=== PATIENT | male | born 1995 | race Asian ===

== ENCOUNTER 2024-10-02 06:59 | Outpatient (REF) | payer OTHER, SELFPAY ==
--- NOTE | ~2024-10-02 | US_ITS ---
CLINICAL HISTORY: RUQ EPIGASTRIC PAIN US abdomen complete Comparison: None Findings: The visualized pancreas is normal. The aorta and inferior vena cava are normal caliber. The liver is normal in size and increased in echotexture. There is no intrahepatic bile duct dilatation. The common duct is 3 mm in diameter. The gallbladder is normal. There is no sonographic Perrin sign. The main portal vein is antegrade. The right kidney is 11.3 cm in length. The left kidney is 12.2 cm in length. The spleen is normal. No ascites. IMPRESSION: No acute findings. Mild hepatic steatosis. This document has been electronically signed by: Hunter Santos MD on 10/03/2024 10:13:35
== END 2024-10-02 07:00 | disposition home or self-care (01) ==
LOC: HO.UMASIMG 06:59
PROVIDERS: Visit Provider Internal Medicine
DX: K29.70 Gastritis, unspecified, without bleeding (principal)
CPT/HCPCS: 76700

== ENCOUNTER → 2024-10-02 09:00 | Outpatient (BNV) | payer OTHER, SELFPAY | PROVIDERS: Visit Provider Radiology Vascular & Interventional Radiology | DX: R10.11 Right upper quadrant pain (principal); R10.13 Epigastric pain | CPT/HCPCS: 76700 ==

== ENCOUNTER 2024-10-22 10:34 | Inpatient (IN) | payer OTHER, SELFPAY ==
--- NOTE | ~2024-10-22 | CT_ITS ---
EXAMINATION: CT ABDOMEN AND PELVIS WITH CONTRAST CLINICAL INFORMATION: Elevated lipase, abdominal pain. COMPARISON: None available. TECHNIQUE: Multidetector volumetric images were obtained from the superior aspect of the liver through the pubic symphysis following administration 85 mL of Omnipaque 350 intravenous contrast. Sagittal and coronal reformatted images were obtained on the technologist's workstation. Oral contrast: No This CT examination was performed using dose optimization techniques as appropriate, variously including the following: *Automated exposure control *Adjustment of mA and/or kV according to patient size (this includes techniques or standardized protocols for targeted exams where dose is matched to indication/reason for exam; i.e. extremities or head) *Use of iterative reconstruction technique FINDINGS: LUNG BASES: The visualized lung bases are unremarkable. LIVER, GALLBLADDER, AND BILIARY TREE: The liver is normal in size, shape, and attenuation. No focal hepatic lesion or biliary ductal dilatation is present. The gallbladder is decompressed. No inflammation. PANCREAS: Mild swelling and peripancreatic edema of the body, head, and uncinate process. Findings consistent with acute edematous pancreatitis. No pancreatic necrosis. No organized fluid collection. SPLEEN: Unremarkable. ADRENAL GLANDS: Unremarkable. KIDNEYS AND URETERS: The kidneys are normal in size, shape, and attenuation. No hydronephrosis, hydroureter, or calculi seen. No perinephric stranding. BLADDER: Unremarkable. GASTROINTESTINAL TRACT: The small and large bowel are unremarkable. The appendix is unremarkable. ABDOMINAL WALL: No significant hernia is appreciated. LYMPH NODES: Normal. VASCULAR: Unremarkable. PELVIC VISCERA: The prostate and seminal vesicles are unremarkable. OSSEOUS STRUCTURES: No suspicious lytic or blastic bone lesions. CT/CT abdomen pelvis w IV con IMPRESSION: 1. Acute edematous pancreatitis of the body, head, and uncinate process of the pancreas. No evidence of pancreatic necrosis, mass, or ductal dilatation. No organized fluid collection. Electronically signed by: Dale Ely MD 10/22/2024 04:25 PM EDT
--- NOTE | ~2024-10-22 | MR_ITS ---
CLINICAL HISTORY: pancreatitis idiopathic; pancreas protocol I: MR abdomen attention pancreas with multiphase contrast imaging. II: MR Cholangiopancreatography with and without contrast: Comparison: 10/22/2024 CT. Ultrasound 10/02/2024 Findings: LIVER: No liver signal loss on IP/OOP (in phase/out of phase). No fatty infiltration. Portal vein is unremarkable. The vena cava and hepatic veins are patent The right lobe of the liver measures 15.7 cm in length BILIARY: The gallbladder size is normal. No pericholecystic inflammatory changes. There is no wall thickening. No intrahepatic biliary dilatation. The extrahepatic common bile duct diameter is 3.8 mm. No biliary duct calculus. PANCREAS: The pancreas is normal in size. No masses. The pancreatic duct in the head of the pancreas measures 2.5 mm in diameter and gradually tapers into the tail. . PERITONEUM/RETROPERITONEUM: Regional bowel and retroperitoneal structures are unremarkable. Adrenal glands are normal. Kidneys are normal in size. Kidney cortex is normal. No hydronephrosis and no signs of ureteral obstruction in the proximal ureters. Bone marrow cellularity is normal. No free intraperitoneal fluid. Bowel caliber is normal. No bowel wall thickening or inflammatory changes. No abdominal wall hernias. No adenopathy. No vascular abnormalities. The celiac and superior mesenteric arteries are unremarkable. Proximal small bowel branches are perfused. Inferior mesenteric artery is perfused. Impression: Normal biliary and pancreatic ducts. No pancreas masses. Mild peripancreatic head increased inflammatory fat density suspicious for segmental pancreatitis (groove pancreatitis). This document has been electronically signed by: Babatunde Orourke MD on 10/22/2024 21:13:34
[2024-10-22 10:46] VITALS: BP 143/88; PULSE 75; RESP 16; TEMP 36.2; O2SAT 100; BMI 25.2
--- NOTE | 2024-10-22 10:47 | ED.ABDPAIN ---
HPI - Abdominal Pain General Chief Complaint: Abdominal Pain Stated Complaint: A Month of Upper Abd Pain- Inflammation Time Seen by Provider: 10/22/24 13:17 Source: patient Mode of arrival: ambulatory Limitations: no limitations History of Present Illness ED Provider: Tanja Paz PA-C HPI narrative: This is a 29-year-old male who presents emergency department with concerns for ongoing abdominal pain for the last month. 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 Patient states that he had elevated lipase levels in the 400s. Patient initially reported to the [facility] on September 25 where he had labs performed which revealed a lipase level of 433, at that time he was told to discontinue his hypertensive medication which was nebivolol/HCTZ as this at times can be a cause of pancreatitis per his provider. Patient then followed up at the [facility] on October 15, 2024 where they reviewed his overall workup, repeat lipase was 396 than 522 on 10/02/2024. An ultrasound was performed revealing no gallstones or acute findings. There is mild hepatic steatosis noted. 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 Patient states that his pain that he is experiencing is intermittent, reports it was very severe this morning. He states that he is unable to eat normally as he is fearful of the pain he experiences. He denies any fevers, chills, shortness for breath, nausea, vomiting or diarrhea. He does report fatty like stool, denies any bloody or black stool. Denies history of pancreatitis in the past. He states that he does not drink alcohol. He denies illicit drug use. He does report that he smokes cigarettes very sparingly. He does report 10kg weight loss over the last month as he has not been eating as he normally does. No other complaints or concerns at this time. MD elicited complaint: abdominal pain Related Data Home Medications ?Medication ?Instructions ?Recorded ?Confirmed nebivolol 5 mg tablet 5 mg PO DAILY 10/22/24 10/22/24 Allergies Allergy/AdvReac Type Severity Reaction Status Date / Time No Known Allergies Allergy Verified 10/22/24 10:46 Review of Systems Review of Systems Yes all other systems are reviewed and are negative Constitutional: Reports as per HPI COUNTS INCLUDE 234 BEDS AT THE [facility] Past Medical History Medical History Hypertension Social History Social History Household Members: Friend(s) Housing: Apartment Do you presently have visiting nurse or other home services: No Patient Tobacco Use Status: Never used Tobacco service: No Physical Exam ED Vital Signs: Vital Signs - 24 hr 10/22/24 10:46 10/22/24 14:51 10/22/24 16:00 Temperature 97.1 F 96.9 F 97.3 F Pulse Rate 75 62 70 Respiratory Rate 16 18 16 Blood Pressure 143/88 H 133/83 128/77 Pulse Oximetry 100 100 96 Oxygen Delivery Method Room Air Room Air Room Air BMI result Body Mass Index 25.2 Const General: cooperative, comfortable and no acute distress Orientation/consciousness: patient oriented x3 Limitations: no limitations HENMT Head: Yes normal to inspection, Yes normocephalic and Yes atraumatic Ears: hearing grossly normal bilaterally General nose exam: Normal external nose present Face and sinus: Yes normal facial exam Mouth: Normal oral and palatal mucosa present, oropharynx normal and moist mucous membranes Throat: Yes posterior oropharynx normal Eyes General: appearance normal, both eyes and all related structures Eyelids: Yes eyelids normal Conjunctivae: conjunctivae normal Sclerae: sclerae normal Pupils: Equal, round and reactive pupils present EOM: EOMs intact bilaterally Neck Neck: Yes normal visual inspection, Yes full ROM and Yes no lymphadenopathy Lymphatic: no lymphadenopathy noted Chest Chest palpation & inspection: normal inspection of the chest Resp Effort & Inspection: normal respiratory effort and able to speak in complete sentences Auscultation: clear to auscultation bilaterally, no crackles, no rales, no rhonchi and no wheezes Cardio Rate: regular rate Rhythm: regular rhythm Heart sounds: S1 normal heart sound present and S2 normal heart sound present GI Other: Abdomen is soft, nontender, nondistended Inspection: Yes normal to inspection Skin General skin exam: no rashes or lesions noted Trauma: no lacerations or abrasions Wounds: no wounds Neuro General: patient oriented x3 and moves all extremities Cranial nerves: Yes Equal, round and reactive pupils present Extrem General: Yes normal to inspection Right upper extremity: normal to inspection Left upper extremity: normal to inspection Right lower extremity: normal to inspection Left lower extremity: normal to inspection Course Course Course Narrative: 29 yo male with PMH of HTN he has been seen at [facility] for elevated lipase has been dealing with upper abdominal pain just had normal US on 10/03. He was scheduled for MRI today but got lost and couldn't find the building. Dr. Miranda ordered the study. I confirmed there are no MRI orders for him. I see no visit notes from Dr. Miranda and his appointment with Dr. Miranda isn't until January. He states someone called him and told him he had an MRI for him. All of his pain started 09/25 no prior surgeries. He does not drink ETOH - his lipase was 400 to 500. Normal triglycerides. He was told to discontinue his HCTZ. At this time I am going to obtain labs, triglycerides and CT scan - he has no known risk factors for pancreatitis this is a RAPID medical screening exam the rest of the history and physical exam is to be done by the main provider. JOSLYN 10/22/24 1052am. Medical Decision Making Medical Decision Making [facility] Narrative: This is a 29-year-old male, with a recent diagnosis of pancreatitis of unknown origin, who presents emergency department with concerns for ongoing abdominal pain and abnormal lipase levels outpatient for the last month. Patient has been followed by [facility] where he has been followed in regards to these abnormally test. He did have an ultrasound on October 03, 2024 which revealed mild hepatic steatosis, otherwise normal findings. Patient that he had an abdominal MRI this morning however they did not have the ordered therefore he reported to the emergency room. On arrival, patient mildly hypertensive at 143/88, all other vital signs within normal limits. He is speaking in full sentences under no acute distress. Labs were obtained prior to my evaluation, he has no leukocytosis, normocytic anemia with an H&H of 13 0.9/41.8, chemistry revealing no evidence of J LUIS, slight hyperglycemia at 118, however nonfasting, and a lipase elevated at 285. He reports no alcohol use or illicit drug use. He also reports 10kg weight loss in the last month. Differential diagnoses include acute pancreatitis, pancreatic mass, malignancy, electrolyte derangement. Will obtain CT abdomen and pelvis for further evaluation. We will also hydrate with IV fluids. Course: CT abdomen and pelvis has returned, revealing acute edematous pancreatitis of the body, head, and uncinate process of the pancreas. No evidence of pancreatic necrosis, mass, or ductal dilatation, no organized fluid collection. I discussed this with hospitalist, transfer of care initiated. Differential Diagnosis Differential Diagnoses: The differential diagnosis associated with the presentation includes See above Admission/Observation Consideration of admission/observation: Escalation of care including admission/observation considered Lab Data MDM Lab Attestation statement: I reviewed the patient's lab results. 10/23/24 03:54 10/24/24 06:27 Labs: Lab Results 10/22/24 Range/Units 11:06 WBC 7.1 (4.8-10.8) X10*3/uL RBC 5.17 (4.60-5.80) X10*6/uL Hgb 13.9 L (14.0-18.0) g/dl Hct 41.8 L (42.0-52.0) % MCV 80.9 (80.0-98.0) fL MCH 26.9 L (27.0-33.0) pg MCHC 33.3 (31.0-36.0) g/dl RDW 13.2 (11.0-16.0) % Plt Count 272 (160-400) X10*3/uL MPV 9.2 L (9.4-12.4) fL Immature Gran % (Auto) 0.1 (0.0-0.4) % Neut % (Auto) 53.3 (45-73) % Lymph % (Auto) 38.2 (20-40) % Dickinson % (Auto) 5.7 (2-11) % Eos % (Auto) 2.4 (0-4) % Baso % (Auto) 0.3 (0-2) % Lymph # (Auto) 2.7 (1.2-4.9) X10*3/uL Dickinson # (Auto) 0.4 (0.1-1.2) X10*3/uL Eos # (Auto) 0.2 (0.0-0.4) X10*3/uL Baso # (Auto) 0.0 (0.0-0.2) X10*3/uL Abs Immat Gran (auto) 0.01 (0.00-0.03) X10*3/uL Absolute Neuts (auto) 3.8 (2.0-8.3) x10*3/uL Absolute Nucleated RBC 0.000 (0.0-0.012) X10*3/uL Nucleated RBC % (auto) 0.0 (0.0-0.2) /100WBC Sodium 141 (135-145) mmol/L Potassium 4.2 (3.3-5.1) mmol/L Chloride 110 H (96-108) mmol/L Carbon Dioxide 26 (22-29) mmol/L Anion Gap 9 L (12-20) BUN 7 L (9-16) mg/dL Creatinine 0.84 (0.5-1.4) mg/dL Estim Creat Clear Calc 153.5 Estimated GFR > 60 Random Glucose 118 H (60-115) mg/dL Calcium 9.2 (8.4-10.2) mg/dL Magnesium 1.8 (1.6-2.6) mg/dL Total Bilirubin 0.5 (0.0-1.0) mg/dL Direct Bilirubin 0.2 (0.0-0.5) mg/dL AST 19 (5-37) U/L ALT 30 (0-40) U/L Alkaline Phosphatase 80 (39-117) U/L Lactate Dehydrogenase 178 (118-273) U/L Total Protein 7.2 (6.5-8.0) g/dL Albumin 4.4 (3.5-5.0) g/dL Lipase 285 H (8-78) U/L Radiology Impression Discussion of test interpretation with radiology: I have reviewed the radiologist's reading. External Record Review External record reviewed: Inpatient record, Office record, Outpatient record, Prior outpatient labs, Prior outpatient radiology, Primary care record and Outside ED record Medications Administered Generic Name Dose Route Start Last Admin Trade Name Freq PRN Reason Stop Dose Admin Calcium Carbonate 750 mg 10/22/24 17:08 10/23/24 10:39 Calcium Carbonate 750 Mg Tab.Chew PO 750 mg Q4H PRN Administration Heartburn Enoxaparin Sodium 40 mg 10/22/24 18:00 10/23/24 17:05 Enoxaparin Sodium 40 Mg/0.4 Ml Syringe SUBCUT Not Given Q24H KACI Omeprazole 20 mg 10/23/24 15:55 10/24/24 05:36 Omeprazole 20 Mg Capsule. PO 20 mg DAILY@0630 KACI Administration Sodium Chloride 3 ml 10/23/24 00:00 10/24/24 09:00 0.9 % Sodium Chloride Flush 3 Ml Syringe IVFLUSH Not Given QSHIFT KACI Discontinued Medications Generic Name Dose Route Start Last Admin Trade Name Fabián PRN Reason Stop Dose Admin Gadobutrol 10 ml 10/22/24 20:25 10/22/24 20:25 Gadobutrol 10 Ml Vial IVPUSH 10/22/24 20:26 9 ml ONCE ONE Administration Sodium Chloride 500 mls @ 999 mls/hr 10/22/24 13:29 10/22/24 17:18 Ns IV 10/22/24 13:59 Infused .Q31M ONE Infusion Lactated Ringer's 1,000 mls @ 125 mls/hr 10/22/24 17:15 10/24/24 10:48 Lr IVCONT Infused .Q8H KACI Infusion Iohexol 85 ml 10/22/24 16:07 10/22/24 16:08 Iohexol 350 Mg/Ml 100 Ml Infus..Btl IV 10/22/24 16:08 85 ml ONCE ONE Administration Discharge Plan Discharge Clinical Impression: Acute pancreatitis Patient Disposition: Admitted As Inpatient Interventions: Admission Worksheet (ED) Last Done: 10/23/24 06:14 Discharge Date/Time: 10/23/24 06:50
[2024-10-22 11:09] LABS: MANUAL DIFF FLAG NO
[2024-10-22 11:11] LABS: Basophils Percent Auto 0.3 % (0-2); Eosinophils Absolute Auto 0.2 X10*3/uL (0.0-0.4); Eosinophils Percent Auto 2.4 % (0-4); Hematocrit 41.8 % (42.0-52.0); Hemoglobin 13.9 g/dl (14.0-18.0); Imm Gran Abs Auto 0.01 X10*3/uL (0.00-0.03); Imm Gran Pct Auto 0.1 % (0.0-0.4); Lymphocytes Absolute Auto 2.7 X10*3/uL (1.2-4.9); Lymphocytes Percent Auto 38.2 % (20-40); Mean Corpuscular HGB Conc 33.3 g/dl (31.0-36.0); Mean Corpuscular Hemoglobin 26.9 pg (27.0-33.0); Mean Corpuscular Volume 80.9 fL (80.0-98.0); Mean Platelet Volume 9.2 fL (9.4-12.4); Monocytes Absolute Auto 0.4 X10*3/uL (0.1-1.2); Monocytes Percent Auto 5.7 % (2-11); Neutrophils Absolute Auto 3.8 x10*3/uL (2.0-8.3); Neutrophils Percent Auto 53.3 % (45-73); Platelet Count 272 X10*3/uL (160-400); Red Blood Count 5.17 X10*6/uL (4.60-5.80); Red Cell Distribution Width 13.2 % (11.0-16.0); White Blood Count 7.1 X10*3/uL (4.8-10.8)
[2024-10-22 11:27] LABS: Alanine Aminotransferase 30 U/L (0-40); Albumin Level 4.4 g/dL (3.5-5.0); Alkaline Phosphatase 80 U/L (39-117); Anion Gap 9 (12-20); Aspartate Amino Transferase 19 U/L (5-37); Bilirubin Direct 0.2 mg/dL (0.0-0.5); Bilirubin Total 0.5 mg/dL (0.0-1.0); Blood Urea Nitrogen 7 mg/dL (9-16); Calcium 9.2 mg/dL (8.4-10.2); Carbon Dioxide 26 mmol/L (22-29); Chloride 110 mmol/L (96-108); Creatinine Clr Calc Pharmacy 153.5; Estimated Glomerular Filt Rate > 60; Glucose Random 118 mg/dL (60-115); Lipase 285 U/L (8-78); Magnesium 1.8 mg/dL (1.6-2.6); Potassium 4.2 mmol/L (3.3-5.1); Sodium 141 mmol/L (135-145); Total Protein 7.2 g/dL (6.5-8.0)
[2024-10-22 14:51] VITALS: BP 133/83; PULSE 62; RESP 18; TEMP 36.1; O2SAT 100
[2024-10-22] MEDS: 0.9 % Sodium Chloride 500 ML 999 ML IV (15:37)
[2024-10-22 16:00] VITALS: BP 128/77; PULSE 70; RESP 16; TEMP 36.3; O2SAT 96
[2024-10-22] MEDS: iohexoL 350 MG/ML 100 ML INFUS..BTL 85 ML IV (16:08)
[2024-10-22 17:30] LABS: Appearance Urine Clear; Color Urine Yellow; Glucose Urine UA Negative (Negative); Leukocyte Esterase Urine Negative (Negative); Nitrite Urine Negative (Negative); Specific Gravity - Urine >= 1.030 (1.005-1.025); Urine Blood Negative (Negative); Urine Ketones Negative (Negative); Urine Protein Negative (Neg-Trace)
[2024-10-22 17:34] LABS: Lactate Dehydrogenase 178 U/L (118-273)
--- NOTE | 2024-10-22 18:32 | PHA.MEDREC ---
Addendum entered by Maya Escobar RPh 10/22/24 19:06: Reviewed by [facility] Original Note: Pharmacy Consult ? Medication Reconciliation Pharmacy has completed the medication reconciliation. Spoke with patient and he stated he gets Nebivolol 5mg tabs filled in [place] and has the bubble pack on hand with him.
[2024-10-22] MEDS: Lactated Ringers 1,000 ML 125 ML IVCONT (18:42)
--- NOTE | 2024-10-22 18:54 | PC.NURSE ---
Report called to TIBURCIO Wang in ER Overflow
--- NOTE | 2024-10-22 18:55 | PM.IMHP ---
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 He describes the pain as severe, periumbilical, and radiating to the back and under both ribs. It is associated with nausea. Eating makes the pain worse. He tried to eat fried chicken once and had a particularly severe bout of pain. As a result, he's been sticking to simple meals of rice and he's lost 7kg in the last month. He was seen at [facility] on 09/25/24 and diagnosed with pancreatitis with lipase of 433, then 522on 10/22/24. US 10/03/24 done here revealed mild fatty liver but no gallstones. Triglyceride level was completely normal and he is not diabetic. He does not drink alcohol and does not smoke or use drugs. His medical history is notable only for HTN, for which he used to take nebivolol-HCTZ but then was changed to nebivolol and perindopril-indapamide. He was instructed to discontinue the perindopril-indapamide as the most suspicious medications for drug-induced pancreatitis. However, despite stopping the medications several weeks ago, he has not noted any improvement. No history of laboratory chemical exposures, or snake or scorpion bite. No family history of pancreatitis. Here in the ED, lipase was 285 with normal LDH and normal transaminases, along with normal glucose and WBCs. CT of the abdomen and pelvis showed acute edematous pancreatitis of the body, head, and uncinate process of the pancreas, with no evidence of pancreatic necrosis, mass, or ductal dilatation and no organized fluid collection. Review of Systems Review of Systems: Yes all other systems are reviewed and are negative [facility] Medical History Hypertension Pertinent family history: no pancreatitis Social History Patient Tobacco Use Status: Never used Tobacco Smoked in Last 30 Days: No Use of substances other than those prescribed or required for medical reasons: No Advance Directives: No Advance Directives Information Provided: Yes Do you have a plan to hurt others: No Plan Nutrition Risks: No Nutritional Risk Meds Allergies Allergy/AdvReac Type Severity Reaction Status Date / Time No Known Allergies Allergy Verified 10/22/24 10:46 Active Medications: Current Medications Acetaminophen (Acetaminophen 325 Mg Tablet) 650 mg PO Q6H PRN PRN Reason: Pain, Mild 1-3,fever,headache Calcium Carbonate (Calcium Carbonate 750 Mg Tab.Chew) 750 mg PO Q4H PRN PRN Reason: Heartburn Enoxaparin Sodium (Enoxaparin Sodium 40 Mg/0.4 Ml Syringe) 40 mg SUBCUT Q24H [facility] Lactated Ringer's (Lr) 1,000 mls @ 125 mls/hr IVCONT .Q8H [facility] Last Admin: 10/22/24 18:42 Dose: 125 mls/hr Magnesium Hydroxide (Milk Of Magnesia 30 Ml Oral.Susp) 30 ml PO DAILY PRN PRN Reason: Constipation Melatonin (Melatonin 3 Mg Tablet) 6 mg PO BEDTIME PRN PRN Reason: Insomnia Morphine Sulfate (Morphine Sulfate 2 Mg/Ml Cartridge) 2 mg IVPUSH Q4H PRN; Protocol PRN Reason: Pain, Severe (Pain Scale 7-10) Ondansetron HCl (Ondansetron Hcl 4 Mg/2 Ml Vial) 4 mg IVPUSH Q8H PRN PRN Reason: Nausea and Vomiting Sodium Chloride (0.9 % Sodium Chloride Flush 3 Ml Syringe) 3 ml IVFLUSH QSHIFT [facility] Home Medications ?Medication ?Instructions ?Recorded ?Confirmed ?Last Taken ?Type nebivolol 5 mg tablet 5 mg PO DAILY 10/22/24 10/22/24 10/21/24 History Physical Exam Vital Signs and Narrative: Vital Signs: Last Vital Signs Temp 97.3 F 10/22/24 16:00 Pulse 70 10/22/24 16:00 Resp 16 10/22/24 16:00 BP 128/77 10/22/24 16:00 Pulse Ox 96 10/22/24 16:00 O2 Del Method Room Air 10/22/24 16:00 BMI result Body Mass Index 25.2 Gen: in no acute distress HEENT: sclera anicteric, moist mucus membranes Neck: supple Lungs: clear to auscultation bilaterally Heart: regular rate and rhythm, no murmurs Abd: soft, periumbilical tenderness, no rebound, non-distended Ext: no edema Skin: warm/well-perfused Neuro: alert and oriented x3, no focal findings Psych: appropriate affect Results Labs 10/22/24 11:06 10/22/24 11:06 Labs: Laboratory Results - last 24 hr 10/22/24 10/22/24 11:06 17:23 MCV 80.9 MCH 26.9 L MCHC 33.3 RDW 13.2 Plt Count 272 MPV 9.2 L Immature Gran % (Auto) 0.1 Neut % (Auto) 53.3 Lymph % (Auto) 38.2 Desha % (Auto) 5.7 Eos % (Auto) 2.4 Baso % (Auto) 0.3 Lymph # (Auto) 2.7 Desha # (Auto) 0.4 Eos # (Auto) 0.2 Baso # (Auto) 0.0 Abs Immat Gran (auto) 0.01 Absolute Neuts (auto) 3.8 Absolute Nucleated RBC 0.000 Nucleated RBC % (auto) 0.0 Anion Gap 9 L Estim Creat Clear Calc 153.5 Estimated GFR > 60 Random Glucose 118 H Calcium 9.2 Magnesium 1.8 Total Bilirubin 0.5 Direct Bilirubin 0.2 AST 19 ALT 30 Alkaline Phosphatase 80 Lactate Dehydrogenase 178 Total Protein 7.2 Albumin 4.4 Lipase 285 H Urine Color Yellow Urine Appearance Clear Urine pH 7.0 Ur Specific Leslie >= 1.030 H Urine Protein Negative Urine Glucose (UA) Negative Urine Ketones Negative Urine Blood Negative Urine Nitrite Negative Ur Leukocyte Esterase Negative Imaging Radiologist's Impressions: Impressions Abdomen/Pelvis CT 10/22/24 10:52 IMPRESSION: 1. Acute edematous pancreatitis of the body, head, and uncinate process of the pancreas. No evidence of pancreatic necrosis, mass, or ductal dilatation. No organized fluid collection. Electronically signed by: Dale Ely MD 10/22/2024 04:25 PM EDT Assessment and Plan (1) Acute pancreatitis: Status: Acute Plan 29yo M with HTN presenting with acute pancreatitis that has been going on for about a month. Cause is unclear, with no alcohol intake history, no gallstones, and normal triglycerides. Symptoms persist despite discontinuing the most likely offending medications, perindopril-indapamide. Other possibilities include the nebivolol [though not reported in [facility]], autoimmune pancreatitis, anatomic abnormality, or viral infection. Admit to med-surg and place on bowel rest/NPO status. Will give aggressive IV hydration with LR and pain control with IV morphine. For now, hold nebivolol; BP is normal, anways. Will obtain MRCP and consult GI. Will also check IgG subclasses and HIV serology. Enoxaparin for VTE prophylaxis. Full code. I anticipate that the patient will stay at least 2 midnights as an inpatient in the hospital due to the above reasons. It is neither reasonable nor safe to care for them in a less acute setting. Quality Stroke Does the patient have a stroke diagnosis?: No VTE Prior VTE?: No VTE Risk Level:: Medical - moderate - high VTE Device Contraindication: N/A - Device Ordered VTE Drug Contraindication: N/A - Med Ordered
--- NOTE | 2024-10-22 19:29 | PC.NURSE ---
pt refused lovenox, is walking around unit independently and will continue to walk per pt
--- NOTE | 2024-10-22 20:03 | PC.NURSE ---
pt off unit for MRI.
[2024-10-22] MEDS: gadobutroL 10 ML VIAL IVPUSH (20:25)
[2024-10-22 23:47] VITALS: BP 142/70; PULSE 70; RESP 16; TEMP 36.7; O2SAT 99
[2024-10-23] MEDS: Lactated Ringers 1,000 ML 125 ML IVCONT ×3 (03:52→22:21)
--- NOTE | 2024-10-23 04:19 | PC.NURSE ---
pt presents to ED for abd pain x1 month, multiple labs done prior to ED visit reveal elevated lipase >400. pain is intermittent but severe at times after eating. CT abdomen and pelvis: acute edematous pancreatitis of the body, head, and uncinate process of the pancreas. MRI: Mild peripancreatic head increased inflammatory fat density suspicious for segmental pancreatitis (groove pancreatitis). bowel rest/NPO. 20g LAC, LR infusing at 125mls/hr. pt A/O x4, calm and cooperative with care, ambulates independently. ADMIT: Acute pancreatitis. GI consult
[2024-10-23 05:50] LABS: Hematocrit 41.2 % (42.0-52.0); Hemoglobin 13.4 g/dl (14.0-18.0); Mean Corpuscular HGB Conc 32.5 g/dl (31.0-36.0); Mean Corpuscular Hemoglobin 26.2 pg (27.0-33.0); Mean Corpuscular Volume 80.5 fL (80.0-98.0); Mean Platelet Volume 9.7 fL (9.4-12.4); Platelet Count 263 X10*3/uL (160-400); Red Blood Count 5.12 X10*6/uL (4.60-5.80); Red Cell Distribution Width 13.2 % (11.0-16.0); White Blood Count 6.3 X10*3/uL (4.8-10.8)
[2024-10-23 06:15] LABS: Alanine Aminotransferase 26 U/L (0-40); Albumin Level 4.1 g/dL (3.5-5.0); Alkaline Phosphatase 73 U/L (39-117); Anion Gap 14 (12-20); Aspartate Amino Transferase 19 U/L (5-37); Bilirubin Total 0.7 mg/dL (0.0-1.0); Blood Urea Nitrogen 6 mg/dL (9-16); Calcium 9.4 mg/dL (8.4-10.2); Carbon Dioxide 23 mmol/L (22-29); Chloride 111 mmol/L (96-108); Creatinine Clr Calc Pharmacy 181.7; Estimated Glomerular Filt Rate > 60; Glucose Random 87 mg/dL (60-115); Potassium 4.1 mmol/L (3.3-5.1); Sodium 144 mmol/L (135-145); Total Protein 6.6 g/dL (6.5-8.0); Triglycerides 88 mg/dL (<150)
[2024-10-23 06:21] VITALS: BP 148/77; PULSE 59; RESP 16; TEMP 36.9; O2SAT 99
[2024-10-23 07:39] VITALS: BP 122/74; PULSE 65; RESP 20; TEMP 36.3; O2SAT 100
[2024-10-23 07:57] LABS: HIV AB/AG Nonreactive (Nonreactive); HIV Num 1 0.05 S/CO (0.00-0.99)
[2024-10-23] MEDS: Calcium Carbonate 750 MG TAB.CHEW PO (10:39)
--- NOTE | 2024-10-23 11:55 | P.PNIM_ITS ---
Subjective Subjective Date of Service: 10/23/24 Interval History: 2-3 attacks of periumbilical/L flank pain overnight but did not request morphine; no N/V Review of Systems Review of Systems: Yes all other systems are reviewed and are negative Physical Exam 2 Vital Signs: Vital Signs: Last Vital Signs Temp 97.4 F 10/23/24 07:39 Pulse 65 10/23/24 07:39 Resp 20 10/23/24 07:39 BP 122/74 10/23/24 07:39 Pulse Ox 100 10/23/24 07:39 O2 Del Method Room Air 10/23/24 07:39 BMI result Body Mass Index 25.2 Gen: in no acute distress HEENT: sclera anicteric, moist mucus membranes Neck: supple Lungs: clear to auscultation bilaterally Heart: regular rate and rhythm, no murmurs Abd: soft, tender around umbilicus and LUQ, no rebound, non-distended Ext: no edema Skin: warm/well-perfused Neuro: alert and oriented x3, no focal findings Psych: appropriate affect Objective Data Active Medications Acetaminophen (Acetaminophen 325 Mg Tablet) 650 mg PO Q6H PRN PRN Reason: Pain, Mild 1-3,fever,headache Calcium Carbonate (Calcium Carbonate 750 Mg Tab.Chew) 750 mg PO Q4H PRN PRN Reason: Heartburn Last Admin: 10/23/24 10:39 Dose: 750 mg Documented By: KAREN Enoxaparin Sodium (Enoxaparin Sodium 40 Mg/0.4 Ml Syringe) 40 mg SUBCUT Q24H [facility] Last Admin: 10/22/24 19:29 Dose: Not Given Documented By: TAMMY Non-Admin Reason: Patient Refused Lactated Ringer's (Lr) 1,000 mls @ 125 mls/hr IVCONT .Q8H [facility] Last Admin: 10/23/24 03:52 Dose: 125 mls/hr Documented By: TAMMY Magnesium Hydroxide (Milk Of Magnesia 30 Ml Oral.Susp) 30 ml PO DAILY PRN PRN Reason: Constipation Melatonin (Melatonin 3 Mg Tablet) 6 mg PO BEDTIME PRN PRN Reason: Insomnia Morphine Sulfate (Morphine Sulfate 2 Mg/Ml Cartridge) 2 mg IVPUSH Q4H PRN; Protocol PRN Reason: Pain, Severe (Pain Scale 7-10) Ondansetron HCl (Ondansetron Hcl 4 Mg/2 Ml Vial) 4 mg IVPUSH Q8H PRN PRN Reason: Nausea and Vomiting Sodium Chloride (0.9 % Sodium Chloride Flush 3 Ml Syringe) 3 ml IVFLUSH QSHIFT KACI Last Admin: 10/23/24 09:05 Dose: Not Given Documented By: KAREN Non-Admin Reason: IV Running Labs 10/23/24 03:54 10/23/24 03:54 Labs: Laboratory Results - last 24 hr 10/22/24 10/22/24 10/23/24 11:06 17:23 03:54 MCV 80.5 MCH 26.2 L MCHC 32.5 RDW 13.2 Plt Count 263 MPV 9.7 Absolute Nucleated RBC 0.000 Nucleated RBC % (auto) 0.0 Anion Gap 14 Estim Creat Clear Calc 181.7 Estimated GFR > 60 Random Glucose 87 Calcium 9.4 Total Bilirubin 0.7 AST 19 ALT 26 Alkaline Phosphatase 73 Lactate Dehydrogenase 178 Total Protein 6.6 Albumin 4.1 Triglycerides 88 Urine Color Yellow Urine Appearance Clear Urine pH 7.0 Ur Specific [place] >= 1.030 H Urine Protein Negative Urine Glucose (UA) Negative Urine Ketones Negative Urine Blood Negative Urine Nitrite Negative Ur Leukocyte Esterase Negative HIV 1&2 Ab/P24 Ag 4thGn Nonreactive Impressions Abdomen/Pelvis CT 10/22/24 10:52 IMPRESSION: 1. Acute edematous pancreatitis of the body, head, and uncinate process of the pancreas. No evidence of pancreatic necrosis, mass, or ductal dilatation. No organized fluid collection. Electronically signed by: Dale Ely MD 10/22/2024 04:25 PM EDT Abd MRI 10/22/24 Normal biliary and pancreatic ducts. No pancreas masses. Mild peripancreatic head increased inflammatory fat density suspicious for segmental pancreatitis (groove pancreatitis). Assessment and Plan (1) Acute pancreatitis: Status: Acute Plan d2 for 29yo M with HTN presenting with acute pancreatitis that has been going on for about a month. acute pancreatitis - no gallstones, no EtOH intake, normal triglycerides, HIV negative, MRI without anatomic abnormalities - possibly medication-related but persisted despite discontinuing the most likely offending medications, perindopril-indapamide; holding nebivolol though this would be a rare cause - IgG subclasses pending to look for autoimmune pancreatitis - try advancing to clear liquid diet, continue LR, and prn morphine for pain control - GI consultation pending HTN - holding nebivolol; already stopped perindopril-indapamide several weeks ago. BP is normal at this time VTE ppx - enoxaparin dispo - eventually home In my clinical judgment, the patient requires continued inpatient hospitalization for the following reasons: IV fluids, specialist consultation Total time managing care of this patient today: 35 minutes. Quality Stroke Does the patient have a stroke diagnosis?: No VTE Prior VTE?: No VTE Risk Level:: Medical - moderate - high VTE Device Contraindication: N/A - Device Ordered VTE Drug Contraindication: N/A - Med Ordered
--- NOTE | 2024-10-23 12:16 | MHC.CLN ---
CONSULT PT REPORTS HE LOST 7KG X 1 MONTH R/T NAUSEA FROM PANCREATITIS PT ALSO CHANGED EATING HABITS SYMPTOMS HAVE NOT IMPROVED FOR A MONTH PT WITH NO S/S MALNUTRITION AT THIS TIME-BMI WNL PT CURRENTLY ON C/L DIET WILL ADD ENSURE CLEAR TID TO INCREASE KCALS MONITOR PO INTAKE CLOSELY IF ALTERNATIVE NUTRITION NEEDED; PLEASE RE-CONSULT RD
--- NOTE | 2024-10-23 14:32 | MHC.CM.PN ---
PT REPORTS HE LIVES WITH FRIENDS AND IS INDEPENDENT WITH CARE HE HAS NO SERVICES AND NO DME HE DECLINES A HCP AND DOES NOT HAVE A PCP, LIST PROVIDED DCP: HOME NO SERVICES VIA LYFT
--- NOTE | 2024-10-23 15:12 | PM.EVENT ---
Event Note Date of Service: 10/23/24 Event Note: GI Consult-Full note dictated Imp: Acute pancreatitis of unclear etiology. Most etiologies have been ruled out by his history, labs, and imaging studies. He seems to be clinically improving by his history after being NPO and treated with IV fluids. The episode may be related to his previous use of his HTN medication with an ROSCOE-inhibitor and thiazide diuretic. Other possibilities could be due to autoimmune pancreatitis, occult peptic ulcer disease, or abnormal pancreatic ductal anatomy with pancreas divisum. I doubt this represents an underlying neoplasm. His 4-5 week smoldering course, even while off his HTN medication, may have been due to the fact that he was an outpatient and still trying to maintain some po nutritonal intake as opposed to being NPO. Rec: Observe, F/U lipase for the morning, keep on clear liquids for the time being, start empiric po PPI, and check the pending IgG subtypes re: possibility of autoimmune pancreatitis. If things improve, normalize, and he remains asymptomatic off his HTN med, I would then observe things and repeat a MRI of the pancreas in 2 to 3 months to be sure the pancreas has returned to a normal appearance. If problems persist, or if they worsen after things have normalized, I would then recommend an outpatient Endoscopic U/S of the pancreas at [facility]. D/W patient in detail and he is comfortable with the plan. Thanks Time Spent With Patient Time: Total time managing care of this patient today ____ minutes.
[2024-10-23 15:43] VITALS: BP 133/72; PULSE 57; RESP 16; TEMP 36.2; O2SAT 100
[2024-10-23 16:00] VITALS: BMI 25.2
[2024-10-23] MEDS: Omeprazole 20 MG CAPSULE.DR PO (16:13)
[2024-10-23 19:17] VITALS: BP 133/61; PULSE 66; RESP 18; TEMP 36.6; O2SAT 100
--- NOTE | 2024-10-23 21:24 | CONS_ITS ---
DATE OF SERVICE: 10/23/2024 REASON FOR CONSULTATION: Abdominal pain and pancreatitis. HISTORY OF PRESENT ILLNESS: The patient is a 29-year-old male, in good health, who describes the onset of upper abdominal pain about 4 or 5 weeks ago. 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 He describes that the normal lab value there is up to 70. He has had fairly persistent upper abdominal pain to 1 degree or another. He denies any associated vomiting, significant nausea, heartburn, dysphagia, jaundice, or fevers. Aside from the upper abdominal pain in the epigastric area, he denies any other abdominal pains. Prior to the past 4 or 5 weeks, he had been feeling well. He denies any chronic GI complaints. He has had no history of ulcer disease or pancreas disease in himself or family members. He does not use any alcohol. He has been on a medication with an ROSCOE inhibitor and thiazide diuretic combined. He has been on that for about 1 or 2 years at least. He has not been on any other medications, including no kpvr-lum-yobfjts medication. At the present time, he is comfortable by his description. He did have some clear liquids today and did not have any worsening of his symptoms. Over the course of the last 4 or 5 weeks, he has been trying to manage things as an outpatient with a full liquid diet. He has lost about 10 pounds by restricting his intake of regular food. Since admission here, he has been afebrile. His medications at home included nebivolol with hydrochlorothiazide, but that had been changed to nebivolol and perindopril indapamide. He has been on those medications for a long time without any previous problems. He stopped the perindopril indapamide when he was 1st found to have pancreatitis with the elevated lipase about 4 or 5 weeks ago. He has only been using the nebivolol. However, during these 4 or 5 weeks, he been on smoothies but not completely n.p.o. Medications at home, nebivolol with hydrochlorothiazide that was changed to nebivolol and perindopril indapamide. He does not use any [id number]-anctnbu medications such as NSAIDs. He has not been on any other medication. PAST MEDICAL HISTORY: Hypertension. He denies any history of previous pancreas trouble in himself. He denies a history of heart disease, diabetes, stroke, lung disease or kidney disease. He has had no surgeries. REVIEW OF SYSTEMS: CONSTITUTIONAL: He had been feeling well up until about a month ago without any problems with his appetite. Over the past several weeks, he has been having increasing abdominal pain and some anorexia on that basis. SKIN: No rash, no pruritus. CARDIAC: No chest pain. PULMONARY: No coughing or hemoptysis. GI: As above. He denies any diarrhea, melena, nor hematochezia. PHYSICAL EXAMINATION: GENERAL: The patient is a pleasant, alert, comfortable appearing male in no distress. VITAL SIGNS: Have been stable and he has been afebrile. SKIN: Warm and dry. Nonjaundiced. Anicteric sclerae. Moist mucous membranes. NECK: Supple. CHEST: Clear. CARDIAC: Normal S1, S2. ABDOMEN: Soft, nondistended and without any focal mass, rebound or guarding at the present time. EXTREMITIES: Without edema. NEUROLOGIC: He is alert and oriented. LABORATORY DATA: He did have an abdominal ultrasound that was negative for gallstones. There was no sign of any biliary disease. His CT scan of the abdomen revealed a normal-appearing liver and biliary tree. There was some mild swelling and peripancreatic edema of the body, head and uncinate process. There is no necrosis nor mass. Finally, an MRI done last night describes the pancreatic duct as being normal and the biliary tree as appearing normal. There was no sign of any gallstones. The radiologist does not describe a pancreatic mass. White blood cell count 7.1, hemoglobin 13.9 with a repeat of 13.4 today. Platelets 263,000. Normal electrolytes. BUN 6, creatinine 0.7. Normal LFTs. Lipase was 285 on admission. Triglyceride level was 88. IgG subtypes are pending. IMPRESSION: The patient is a 29-year-old healthy male presenting with acute pancreatitis that has had a somewhat prolonged course over the past 4 or 5 weeks. Most things that can cause pancreatitis have been ruled out by his history, laboratories, and imaging studies. One strong suspicion is that of a drug-induced pancreatitis from the hypertension medication with the ROSCOE inhibitor and diuretic. Another possibility could be that of occult peptic ulcer disease. Autoimmune pancreatitis is another possibility, albeit unlikely. Abnormal pancreatic duct anatomy such as pancreas divisum could be playing a role here as well, although they do not describe that on the MRCP. I doubt this represents anything such as an underlying neoplasm. At this point, he does seem to be improving while being kept relatively n.p.o. I would continue to observe things and followup lipase in the morning. I will keep him on clear liquids for the time being. I would treat him with an empiric PPI orally. The results of the IgG subtypes will need to be checked. I advised him that if things improve, normalize, and he remains asymptomatic in regard to the pancreas, then I do not think any further studies will need to be done immediately. I would then observe things as an outpatient and repeat a MRI of the pancreas in 2 to 3 months to be sure the pancreas has returned to normal appearance. If his current problems persist or if they worsen again after having normalized, I would then recommend an outpatient endoscopic ultrasound of the pancreas at [facility]. This has all been discussed in detail with the patient and he is comfortable with the plan. MD MEL Ibarra/MORRO / [phone] MTDJohn
[2024-10-24 03:30] VITALS: BP 119/69; PULSE 62; RESP 20; TEMP 36.7; O2SAT 99
[2024-10-24] MEDS: Omeprazole 20 MG CAPSULE.DR PO (05:36)
[2024-10-24] MEDS: Lactated Ringers 1,000 ML 125 ML IVCONT (05:38)
[2024-10-24 07:16] LABS: Alanine Aminotransferase 18 U/L (0-40); Albumin Level 3.9 g/dL (3.5-5.0); Alkaline Phosphatase 69 U/L (39-117); Anion Gap 13 (12-20); Aspartate Amino Transferase 17 U/L (5-37); Bilirubin Total 0.6 mg/dL (0.0-1.0); Blood Urea Nitrogen 6 mg/dL (9-16); Calcium 9.1 mg/dL (8.4-10.2); Carbon Dioxide 24 mmol/L (22-29); Chloride 110 mmol/L (96-108); Creatinine Clr Calc Pharmacy 165.3; Estimated Glomerular Filt Rate > 60; Glucose Random 100 mg/dL (60-115); Lipase 240 U/L (8-78); Sodium 143 mmol/L (135-145); Total Protein 6.3 g/dL (6.5-8.0)
[2024-10-24 07:29] VITALS: BP 132/61; PULSE 56; RESP 18; TEMP 36.6; O2SAT 98
[2024-10-24 10:48] LABS: Immunoglobulin G Subclass 1 523 mg/dL (382-929); Immunoglobulin G Subclass 2 292 mg/dL (241-700); Immunoglobulin G Subclass 3 49 mg/dL (22-178); Immunoglobulin G Subclass 4 113.5 mg/dL (4-86); Immunoglobulin G Total 974 mg/dL (600-1640)
[2024-10-24 12:58] VITALS: BP 138/66; PULSE 82; RESP 18; TEMP 36.8; O2SAT 100
--- NOTE | 2024-10-24 13:48 | MHC.CM.PN ---
PT WILL DC HOME TODAY WITH NO SERVICES
--- NOTE | 2024-10-24 14:58 | P.DS_ITS ---
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 He describes the pain as severe, periumbilical, and radiating to the back and under both ribs. It is associated with nausea. Eating makes the pain worse. He tried to eat fried chicken once and had a particularly severe bout of pain. As a result, he's been sticking to simple meals of rice and he's lost 7kg in the last month. He was seen at [employer] [facility] on 09/25/24 and diagnosed with p ancreatitis with lipase of 433, then 522on 10/22/24. US 10/03/24 done here revealed mild fatty liver but no gallstones. Triglyceride level was completely normal and he is not diabetic. He does not drink alcohol and does not smoke or use drugs. His medical history is notable only for HTN, for which he used to take nebivolol-HCTZ but then was changed to nebivolol and perindopril- indapamide. He was instructed to discontinue the perindopril-indapamide as the most suspicious medications for drug-induced pancreatitis. However, despite stopping the medications several weeks ago, he has not noted any improvement. No history of laboratory chemical exposures, or snake or scorpion bite. No family history of pancreatitis. Here in the ED, lipase was 285 with normal LDH and normal transaminases, along with normal glucose and WBCs. CT of the abdomen and pelvis showed acute edematous pancreatitis of the body, head, and uncinate process of the pancreas, with no evidence of pancreatic necrosis, mass, or ductal dilatation and no organized fluid collection. He was admitted to the medical-surgical unit on bowel rest and IV fluids. His diet was gradually advanced with good tolerance and minimal pain. Cause of the pancreatitis remains unclear. He was seen by the claims attorney electrical controls assembler, Dev Acosta, and will be followed by him as an outpatient. No gallstones on imaging, no EtOH intake by history, normal triglycerides, HIV negative, and MRI without anatomic abnormalities. Possibly medication-related but persisted despite discontinuing the most likely offending medications, perindopril- indapamide; continued to hold nebivolol though this would be a rare cause. Blood pressure actually remained reasonable without therapy but in the future, could use amlodipine if needed to control blood pressure. Another possibility would be PUD; he was started on empiric omperazole. IgG4 returned after the patient was discharged and was slightly elevated [level 113.5 mg/dL, ULN 86 mg/dL]. This is not definitively diagnostic for autoimmune pancreatitis, but suggestive. Dr Acosta will repeat the IgG levels as an outpatient and if suggestive of autoimmune pancreatitis, an EUS would be indicated to get better imaging of the pancreatic tissue and the pancreatic ducts as well as to obtain a biopsy. If the patient has recurring or worsening symptoms, an EUS would also be indicated. This would require a referral to [facility]. Regardless, he should have a repeat MRI as an outpatient in 2-3 months to ensure the radiographic abnormalities resolve. Time Attestation Discharge Coordination Time (in mins): 40 Quality: Safe Use of Opioids Does Pt have an Active Cancer Diagnosis on the Problem List?: No Quality: Stroke Does the patient have a stroke diagnosis?: No Physical Exam Vital Signs: Vital Signs: Last Vital Signs Temp 98.3 F 10/24/24 12:58 Pulse 82 10/24/24 12:58 Resp 18 10/24/24 12:58 BP 138/66 10/24/24 12:58 Pulse Ox 100 10/24/24 12:58 O2 Del Method Room Air 10/24/24 12:58 BMI result Body Mass Index 25.2 Gen: in no acute distress HEENT: sclera anicteric, moist mucus membranes Neck: supple Lungs: clear to auscultation bilaterally Heart: regular rate and rhythm, no murmurs Abd: soft, non-tender, non-distended Ext: no edema Skin: warm/well-perfused Neuro: alert and oriented x3, no focal findings Psych: appropriate affect DS: Data Data Completed and Pending Completed studies during hospitalization [Text1]: Laboratory Tests 10/22/24 10/22/24 10/23/24 11:06 17:23 03:54 WBC 7.1 6.3 RBC 5.17 5.12 Hgb 13.9 L 13.4 L Hct 41.8 L 41.2 L MCV 80.9 80.5 MCH 26.9 L 26.2 L MCHC 33.3 32.5 RDW 13.2 13.2 Plt Count 272 263 MPV 9.2 L 9.7 Immature Gran % (Auto) 0.1 Neut % (Auto) 53.3 Lymph % (Auto) 38.2 [place] % (Auto) 5.7 Eos % (Auto) 2.4 Baso % (Auto) 0.3 Lymph # (Auto) 2.7 [place] # (Auto) 0.4 Eos # (Auto) 0.2 Baso # (Auto) 0.0 Abs Immat Gran (auto) 0.01 Absolute Neuts (auto) 3.8 Absolute Nucleated RBC 0.000 0.000 Nucleated RBC % (auto) 0.0 0.0 Hold Purple Top Sodium 141 144 Potassium 4.2 4.1 Chloride 110 H 111 H Carbon Dioxide 26 23 Anion Gap 9 L 14 BUN 7 L 6 L Creatinine 0.84 0.71 Estim Creat Clear Calc 153.5 181.7 Estimated GFR > 60 > 60 Random Glucose 118 H 87 Calcium 9.2 9.4 Magnesium 1.8 Total Bilirubin 0.5 0.7 Direct Bilirubin 0.2 AST 19 19 ALT 30 26 Alkaline Phosphatase 80 73 Lactate Dehydrogenase 178 Total Protein 7.2 6.6 Albumin 4.4 4.1 Triglycerides 88 Lipase 285 H Urine Color Yellow Urine Appearance Clear Urine pH 7.0 Ur Specific [place] >= 1.030 H Urine Protein Negative Urine Glucose (UA) Negative Urine Ketones Negative Urine Blood Negative Urine Nitrite Negative Ur Leukocyte Esterase Negative IgG Total 974 IgG Subclass 1 523 IgG Subclass 2 292 IgG Subclass 3 49 IgG Subclass 4 113.5 H HIV 1&2 Ab/P24 Ag 4thGn Nonreactive 10/24/24 06:27 WBC RBC Hgb Hct MCV MCH MCHC RDW Plt Count MPV Immature Gran % (Auto) Neut % (Auto) Lymph % (Auto) [place] % (Auto) Eos % (Auto) Baso % (Auto) Lymph # (Auto) [place] # (Auto) Eos # (Auto) Baso # (Auto) Abs Immat Gran (auto) Absolute Neuts (auto) Absolute Nucleated RBC Nucleated RBC % (auto) Hold Purple Top SEE NOTE Sodium 143 Potassium 4.0 Chloride 110 H Carbon Dioxide 24 Anion Gap 13 BUN 6 L Creatinine 0.78 Estim Creat Clear Calc 165.3 Estimated GFR > 60 Random Glucose 100 Calcium 9.1 Magnesium Total Bilirubin 0.6 Direct Bilirubin AST 17 ALT 18 Alkaline Phosphatase 69 Lactate Dehydrogenase Total Protein 6.3 L Albumin 3.9 Triglycerides Lipase 240 H Urine Color Urine Appearance Urine pH Ur Specific [place] Urine Protein Urine Glucose (UA) Urine Ketones Urine Blood Urine Nitrite Ur Leukocyte Esterase IgG Total IgG Subclass 1 IgG Subclass 2 IgG Subclass 3 IgG Subclass 4 HIV 1&2 Ab/P24 Ag 4thGn Discharge Plan Discharge Anticipated Discharge Date/Time: 10/24/24 12:44 Patient Disposition: Home, Self-Care Discharge Diagnosis: acute pancreatitis Referrals: Alphonso Maldonado MD [Physician] - 1 Week Dev Acosta MD [Physician] - 2 Weeks Discharge Medications: New omeprazole 20 mg Capsule,Delayed Release(Dr/Ec) 20 mg PO DAILY@0630 Qty: 30 0RF Discontinued nebivolol 5 mg Tablet 5 mg PO DAILY Discharge Orders: Discharge Order (Routine); Ordered 10/24/24 Ordered By: Katey Bills Diet: Low fat, low cholesterol Activity on Discharge: As tolerated Stand Alone Forms: Patient Portal Discharge page Print Language: Kazakh Care Plan Goals: GI health Health Concerns: acute pancreatitis Plan of Treatment: drink plenty of fluids and follow a low-fat diet take omeprazole 20 mg daily stop nebivolol for now. you have already stopped indapamide/perindopril. in the future, if medication needed for blood pressure control, may consider amlodipine follow up with Dr Dev Acosta from [facility]. Results of testing for autoimmune pancreatitis pending. Please follow up with your primary care doctor within 1 week. Return to the hospital if you experience recurrent or worsening symptoms. Assessment: See Discharge Summary. Patient Instructions: Low Fat Diet (DC) Discharge Date/Time: 10/24/24 13:46
== END 2024-10-24 13:46 | disposition home or self-care (01) | DRG 440 ==
LOC: HO.ED 14:03 → HO.EDOVER 17:25 → HO.S3 10-23 06:15
PROVIDERS: Emergency Medicine; Admitting Provider Family Medicine; Emergency Provider Emergency Medicine; Visit Provider Family Medicine
DX: K85.90 Acute pancreatitis without necrosis or infection, unspecified (principal); I10 Essential (primary) hypertension
CPT/HCPCS: 36415; 74177; 74183; 80048; 80053; 80076; 81003; 82784; 83615; 83690; 83735; 84478; 85025; 85027; 87389; 99285; A9585; J7120; Q9967

== ENCOUNTER → 2024-10-22 10:52 | Outpatient (BNV) | payer OTHER, SELFPAY | PROVIDERS: Emergency Provider Emergency Medicine; Visit Provider Radiology Diagnostic Radiology | DX: K86.89 Other specified diseases of pancreas (principal); K85.90 Acute pancreatitis without necrosis or infection, unspecified | CPT/HCPCS: 74177; 74183 ==

== ENCOUNTER → 2024-10-22 17:09 | Outpatient (BNV) | payer OTHER, SELFPAY | PROVIDERS: Admitting Provider Family Medicine; Emergency Provider Emergency Medicine; Visit Provider Family Medicine | DX: K85.90 Acute pancreatitis without necrosis or infection, unspecified (principal) | CPT/HCPCS: 99232 ==

== ENCOUNTER 2024-11-14 10:04 | Outpatient (REF) | payer OTHER, SELFPAY ==
--- OUTSIDE RECORDS SUMMARY | 2024-10-30 11:34 | XMS_ITS ---
[facility] Address [address] [place] [id number] Care Team Providers Care Snow Remover Name Role Phone Katey Bills Primary Care Provider Dev Trinidad [phone] REASON FOR VISIT Needs labs and OV Encounters Encounter Location Date Provider Diagnosis [facility] [address] [place] [phone] 10/30/2024 Dev Acosta Pancreatitis K85.90 Assessments Encounter Date Diagnosis (ICD Code) Assessment Notes Treatment Notes Treatment Clinical Notes Section Notes 10/30/2024 Pancreatitis (ICD-10 - K85.90) Plan Of Treatment Pending Test Test Name Order Date LIVER PROFILE 10/30/2024 IgG SUBCLASSES PANEL, SERUM 10/30/2024 Amylase 10/30/2024 Lipase 10/30/2024 Next Appt Details Provider Name:Dev Acosta , 02/04/2025 02:40:00 PM, [address], [address], [place], [address], Progress Notes * DEMARCUS MADISONOB:[birth year] (29 yo M)Acc No.[id number]:10/30/2024 Patient: Leslie JAMES CÉSAR MILLER :1995 A ge:29 Y S ex:Male Address[address], [place] [address] Subjective: * Chief Complaints: * N eeds labs and OV * Medical History: * Surgical History: * Hospitalization/Major Diagno stic Procedure: * Medications: Objective: * Vitals: * Physical Examination: Assessment: * Assessment: 1. P ancreatitis - K85.90 (Primary) Plan: * Treatment: * Procedure Codes: * true * Date: Generated for Jeff reveles/Oniel/Carrie on: 0 11/14/2024 10:22 AM EDT
[2024-11-14 11:14] LABS: Alanine Aminotransferase 25 U/L (0-40); Albumin Level 4.6 g/dL (3.5-5.0); Alkaline Phosphatase 84 U/L (39-117); Aspartate Amino Transferase 19 U/L (5-37); Bilirubin Direct 0.2 mg/dL (0.0-0.5); Bilirubin Total 0.4 mg/dL (0.0-1.0); Lipase 157 U/L (8-78); Total Protein 7.1 g/dL (6.5-8.0)
[2024-11-14 11:36] LABS: Amylase 41 U/L (28-100)
[2024-11-17 15:02] LABS: Immunoglobulin G Subclass 1 513 mg/dL (382-929); Immunoglobulin G Subclass 2 291 mg/dL (241-700); Immunoglobulin G Subclass 3 49 mg/dL (22-178); Immunoglobulin G Subclass 4 114.6 mg/dL (4-86); Immunoglobulin G Total 978 mg/dL (600-1640)
== END 2024-11-14 10:05 | disposition home or self-care (01) ==
LOC: HO.LAB 10:04
PROVIDERS: Internal Medicine; PCP Internal Medicine; Visit Provider Nurse Practitioner Family
DX: K85.90 Acute pancreatitis without necrosis or infection, unspecified (principal)
CPT/HCPCS: 36415; 80076; 82150; 82784; 83690

== ENCOUNTER 2024-12-08 14:15 | Outpatient (AMB) | payer OTHER, SELFPAY ==
--- NOTE | 2024-12-08 14:21 | MHC.OFFVIS ---
Vital Signs 12/08/24 14:24 Height 6 ft 2 in Weight 194 lb 0.108 oz BMI 24.9 BP 127/77 Blood Pressure Location Lt brachial Position Sitting Intake Visit Reasons: Pancreatitis Intake Note: Shannan presents in the office as a new patient for pancreatitis. CC: He states that he was in the ED in the end of September. Got better but the last week he has a discomfort in his stomach. 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 Allergies No Known Allergies Allergy (Verified 12/08/24 14:23) HPI HPI Pancreatitis: Details: HPI 29 yr old m here for assessment for pancreatitis He was admitted 10/22/24 with epigastric pain he had lipase elevation imaging with Us, Ct, and MRI wth acute pancreatitis--no gallstones seen he was told to stop indapamide he had mild IgG4 elevation weight has been stable for now no alcohol or drugs no melena, no rectal bleeding ROS: Constitutional : No Weight loss, No Fever, No Chills ENT/Mouth : No sore throat, No Rhinorrhea Eyes: No Swelling, No Redness Cardiovascular : No Chest Pain, No SOB, No Edema Respiratory : No Cough, No Sputum, No Wheezing Gastrointestinal : see HPI Genitourinary : NO Dysuria, No Urinary Frequency, No Hematuria, No Urgency Musculoskeletal : no joint pain, No Myalgias, No Joint Swelling Skin : No Skin Lesions, No rash Neuro : No Weakness, No Numbness, No Dizziness, No Headache Psych : No Anxiety/Panic, No Depression Heme/Lymph: No Bruising, No Lymphadenopathy Endocrine : No Polyuria, No Polydipsia All other systems reviewed and are negative. Medical History HTN Surgical History none Family History FH of HTN Social History student EXAM: GENERAL: The patient is well developed and nontoxic. VITAL SIGNS:see workflow HEENT: Nonicteric sclerae, PERRLA, EOMI. Oropharynx clear. Moist mucous membranes. Conjunctivae appear well perfused. No thyroid mass. CHEST: Chest wall is nontender. HEART: Regular rate and rhythm without murmurs. LUNGS: Clear to auscultation bilaterally. ABDOMEN: Soft, positive bowel sounds, nontender, no organomegaly.no flank tenderness SKIN: No rash, no excessive bruising, petechiae, or purpura. NEUROLOGIC: Cranial nerves II-XII intact without motor/sensory deficit. Psych: normal affect A/P: 1/ Acute pancreatitis, uncertain etiology, no Fh of AP, ?due to indapamide, less likely celiac,, Igg4 (lab elevated but mild ), stiill could be gallstones or microlithiasis, SOD PLAN: 1/ repeat MRCP 2/ check celiac, GISELE 3/ consider genetic testing if above neg PFSH Medical History Hypertension Social History Household Members: Friend(s) Housing: Apartment Do you presently have visiting nurse or other home services: No Patient Tobacco Use Status: Never used Tobacco service: No Physical Exam Vital Signs: Last Vital Signs BP 127/77 12/08/24 14:24 BMI result Body Mass Index 24.9 Assessment & Plan Assessment & Plan (1) Acute pancreatitis: Code(s): K85.90 - Acute pancreatitis without necrosis or infection, unspecified Category: Medical Plan: as above Orders: Orders Ferritin Today K85.90 - Acute pancreatitis without necrosis or infection, unspecified Complete Blood Count Auto Diff Today K85.90 - Acute pancreatitis without necrosis or infection, unspecified Comprehensive Met. Panel Today K75.81 - Nonalcoholic steatohepatitis (ROQUE), K85.90 - Acute pancreatitis without necrosis or infection, unspecified Immunoglobulin G Subclasses Today K85.90 - Acute pancreatitis without necrosis or infection, unspecified MR abdomen wo/w con Today K85.90 - Acute pancreatitis without necrosis or infection, unspecified Transglutaminase IgA Today K85.90 - Acute pancreatitis without necrosis or infection, unspecified Transglutaminase Ab IgG Today G89.29 - Other chronic pain, K85.90 - Acute pancreatitis without necrosis or infection, unspecified, R10.33 - Periumbilical pain Vitamin B12 and Folate Today K85.90 - Acute pancreatitis without necrosis or infection, unspecified GISELE Reflex Titer and Pattern Today K85.90 - Acute pancreatitis without necrosis or infection, unspecified, R79.82 - Elevated C-reactive protein (CRP) Coding Level of Care Code New Pt Level 4 (57495) Diagnoses Acute pancreatitis K85.90
[2024-12-08 14:24] VITALS: BP 127/77; BMI 24.9
--- OUTSIDE RECORDS SUMMARY | 2024-12-08 15:39 | XMS_ITS | Patient Health Record ---
Author Organization [facility] Address [address] [place] [address] Care Team Providers Care Privacy Manager Name Role Phone Zhang Billselisabet Primary Care Provider Dev Trinidad [phone] Results Component Value Reference Range Notes Liver Panel Reviewed date:11/15/2024 09:54:17 PM Interpretation: Performing Lab:[facility], [address] [place] [phone] Notes/Report: Bilirubin Total 0.4 0.0-1.0 mg/dL Bilirubin Direct 0.2 0.0-0.5 mg/dL Aspartate Amino Transferase 19 5-37 U/L Alanine Aminotransferase 25 0-40 U/L Total Protein 7.1 6.5-8.0 g/dL Albumin Level 4.6 3.5-5.0 g/dL Alkaline Phosphatase 84 39-117 U/L Amylase Reviewed date:11/15/2024 09:54:07 PM Interpretation: Performing Lab:[facility], [address] [place] [phone] Notes/Report: Amylase 41 28-100 U/L Lipase Reviewed date:11/15/2024 09:55:39 PM Interpretation: Performing Lab:[facility], [address] [place] [phone] Notes/Report: Lipase 157 8-78 U/L Immunoglobulin G Subclasses (Not yet reviewed by provider) Interpretation: Performing Lab:[facility], [address] [place] [phone] Notes/Report: Immunoglobulin G Subclass 1 513 382-929 mg/dL Immunoglobulin G Subclass 2 291 241-700 mg/dL Immunoglobulin G Subclass 3 49 22-178 mg/dL Immunoglobulin G Subclass 4 114.6 4-86 mg/dL Immunoglobulin G Total 818 042-9876 mg/dL THIS TEST WAS PERFORMED AT: [facility] [address] [place] [phone] PANCHO GALVIN MD Reason For Referral No Information Encounters Encounter Location Date Provider Diagnosis [facility] [address] [place] [address] 10/30/2024 Dev Acosta Pancreatitis K85.90 Assessments Encounter Date Diagnosis (ICD Code) Assessment Notes Treatment Notes Treatment Clinical Notes Section Notes 10/30/2024 Pancreatitis (ICD-10 - K85.90) Plan Of Treatment Pending Test Test Name Order Date LIVER PROFILE 10/30/2024 IgG SUBCLASSES PANEL, SERUM 10/30/2024 Amylase 10/30/2024 Lipase 10/30/2024 Immunoglobulin G Subclasses 11/14/2024 Next Appt Details Provider Name:Dev Acosta , 02/04/2025 02:40:00 PM, [address], [address], [place], [address], Insurance Providers Payer Name Payer Address Payer Phone Subscriber Number Group Number Insured Name Patient Relationship to Insured Coverage Start Date Coverage End Date [facility] [address] [address] [facility] [place] [address] [phone] [id number] CÉSAR MADISON Self - patient is the insured
== END 2024-12-08 15:21 | disposition home or self-care (01) ==
LOC: HO.HGI 14:16
PROVIDERS: Visit Provider Internal Medicine Gastroenterology
DX: K85.90 Acute pancreatitis without necrosis or infection, unspecified (principal)
CPT/HCPCS: 99204

== ENCOUNTER 2024-12-08 15:30 | Outpatient (REF) | payer OTHER, SELFPAY ==
[2024-12-08 15:42] LABS: MANUAL DIFF FLAG NO
[2024-12-08 16:22] LABS: Hematocrit 43.7 % (42.0-52.0); Hemoglobin 14.0 g/dl (14.0-18.0); Imm Gran Abs Auto 0.02 X10*3/uL (0.00-0.03); Imm Gran Pct Auto 0.3 % (0.0-0.4); Lymphocytes Absolute Auto 3.0 X10*3/uL (1.2-4.9); Mean Corpuscular HGB Conc 32.0 g/dl (31.0-36.0); Mean Corpuscular Hemoglobin 26.2 pg (27.0-33.0); Mean Corpuscular Volume 81.8 fL (80.0-98.0); NRBC Abs Auto 0.000 X10*3/uL (0.0-0.012); NRBC Pct Auto 0.0 /100WBC (0.0-0.2); Platelet Count 316 X10*3/uL (160-400); Red Blood Count 5.34 X10*6/uL (4.60-5.80); White Blood Count 7.1 X10*3/uL (4.8-10.8)
[2024-12-08 17:40] LABS: Alanine Aminotransferase 31 U/L (0-40); Albumin Level 4.9 g/dL (3.5-5.0); Alkaline Phosphatase 90 U/L (39-117); Anion Gap 12 (12-20); Aspartate Amino Transferase 30 U/L (5-37); Blood Urea Nitrogen 12 mg/dL (9-16); Calcium 9.4 mg/dL (8.4-10.2); Carbon Dioxide 26 mmol/L (22-29); Chloride 108 mmol/L (96-108); Estimated Glomerular Filt Rate > 60; Ferritin 51 ng/mL (20-250); Potassium 4.2 mmol/L (3.3-5.1); Sodium 142 mmol/L (135-145); Total Protein 7.6 g/dL (6.5-8.0)
[2024-12-08 17:43] LABS: Vitamin B12 337 pg/mL (200-900)
[2024-12-08 18:23] LABS: Folate 5.7 ng/mL (> or = 4.0)
[2024-12-09 22:18] LABS: Transglutaminase Ab IgG <1.0 U/mL
[2024-12-11 15:08] LABS: Immunoglobulin G Subclass 1 609 mg/dL (382-929); Immunoglobulin G Subclass 2 344 mg/dL (241-700); Immunoglobulin G Subclass 3 57 mg/dL (22-178); Immunoglobulin G Subclass 4 128.9 mg/dL (4-86); Immunoglobulin G Total 1143 mg/dL (600-1640)
[2024-12-11 20:59] LABS: Anti Nuclear Antibody Screen NEGATIVE (NEGATIVE)
== END 2024-12-08 15:31 | disposition home or self-care (01) ==
LOC: HO.LAB 15:30
PROVIDERS: PCP Internal Medicine; Visit Provider Internal Medicine Gastroenterology
DX: R10.33 Periumbilical pain (principal); K85.90 Acute pancreatitis without necrosis or infection, unspecified; K75.81 Nonalcoholic steatohepatitis (NASH); G89.29 Other chronic pain; R79.82 Elevated C-reactive protein (CRP); Z01.84 Encounter for antibody response examination
CPT/HCPCS: 36415; 80053; 82607; 82728; 82746; 82784; 85025; 86038; 86364

== ENCOUNTER 2024-12-30 16:10 | Outpatient (REF) | payer OTHER, SELFPAY ==
--- NOTE | ~2024-12-30 | MR_ITS ---
EXAMINATION: MR ABDOMEN WITHOUT THEN WITH IV CONTRAST HISTORY: acute pancreatitis check for autoimmune pancreatitis COMPARISON: Comparison is made with the prior examination dated 10/14/2024. Correlation is also made with a CT of the abdomen with contrast dated 10/14/2024. TECHNIQUE: Axial in and out of phase T1-weighted gradient echo, axial diffusion weighted, and axial and coronal HASTE T2 with fat saturation images were obtained through the abdomen. 3D MRCP Reconstructed and thin and thick slab images of the biliary tree were obtained. Subsequently, fat suppressed axial and coronal T1-weighted images were obtained after the intravenous administration of 9 mL Gadavist. FINDINGS: Liver: There is no loss of signal intensity in the liver on opposed phase imaging to suggest steatosis. There is no enhancing liver mass. The hepatic and portal veins are patent. There is no intrahepatic biliary dilatation. Gallbladder/biliary tree: No gallstones are identified. The common bile duct is normal in caliber. No intraluminal filling defects are identified to suggest choledocholithiasis. Spleen: The spleen is unremarkable. Pancreas: The pancreas is unremarkable, demonstrating normal enhancement. No peripancreatic inflammatory changes are identified to suggest acute pancreatitis. The previously seen swelling of the pancreatic head, neck, and uncinate process has resolved. There is no enhancing pancreatic mass. The pancreatic duct is normal in caliber. Adrenals: The adrenal glands are unremarkable. Kidneys: The kidneys are unremarkable. There is no hydronephrosis. Lymph nodes: There is no retroperitoneal lymphadenopathy in the upper abdomen. Fluid: There is no ascites in the upper abdomen. Visualized bowel: The visualized small and large bowel loops are unremarkable in appearance. Visualized bones: The visualized bones demonstrate normal marrow signal intensity. MR/MR abdomen wo/w con IMPRESSION: Unremarkable MRI of the abdomen without and with contrast. The previously seen findings of acute pancreatitis involving the head, neck, and uncinate process have resolved. No evidence of acute pancreatitis. Electronically signed by: Dev Reyes MD 12/31/2024 07:15 AM EDT
--- OUTSIDE RECORDS SUMMARY | 2024-12-30 16:17 | XMS_ITS | Patient Health Record ---
Author Organization [facility] Address [address] [place] [address] Care Team Providers Care Part Time Receptionist Name Role Phone Zhang Billselisabet Primary Care Provider Dev Trinidad [phone] Results Component Value Reference Range Notes Liver Panel Reviewed date:11/15/2024 09:54:17 PM Interpretation: Performing Lab:[facility], [address] [place] [phone] Notes/Report: Bilirubin Total 0.4 0.0-1.0 mg/dL Bilirubin Direct 0.2 0.0-0.5 mg/dL Aspartate Amino Transferase 19 5-37 U/L Alanine Aminotransferase 25 0-40 U/L Total Protein 7.1 6.5-8.0 g/dL Albumin Level 4.6 3.5-5.0 g/dL Alkaline Phosphatase 84 39-117 U/L Amylase Reviewed date:11/15/2024 09:54:07 PM Interpretation: Performing Lab:[facility], [address] [place] [phone] Notes/Report: Amylase 41 28-100 U/L Lipase Reviewed date:11/15/2024 09:55:39 PM Interpretation: Performing Lab:[facility], [address] [place] [phone] Notes/Report: Lipase 157 8-78 U/L Immunoglobulin G Subclasses (Not yet reviewed by provider) Interpretation: Performing Lab:[facility], [address] [place] [phone] Notes/Report: Immunoglobulin G Subclass 1 513 382-929 mg/dL Immunoglobulin G Subclass 2 291 241-700 mg/dL Immunoglobulin G Subclass 3 49 22-178 mg/dL Immunoglobulin G Subclass 4 114.6 4-86 mg/dL Immunoglobulin G Total 428 456-6263 mg/dL THIS TEST WAS PERFORMED AT: [facility] [address] [place] [phone] PANCHO GALVIN MD Reason For Referral No Information Encounters Encounter Location Date Provider Diagnosis [facility] [address] [facility] [address] [place] [address] 10/30/2024 Dev Acosta Pancreatitis K85.90 Assessments Encounter Date Diagnosis (ICD Code) Assessment Notes Treatment Notes Treatment Clinical Notes Section Notes 10/30/2024 Pancreatitis (ICD-10 - K85.90) Plan Of Treatment Pending Test Test Name Order Date LIVER PROFILE 10/30/2024 IgG SUBCLASSES PANEL, SERUM 10/30/2024 Amylase 10/30/2024 Lipase 10/30/2024 Immunoglobulin G Subclasses 11/14/2024 Next Appt Details Provider Name:Dev Acosta , 02/04/2025 02:40:00 PM, [address] [facility], [address], [place], [address], Insurance Providers Payer Name Payer Address Payer Phone Subscriber Number Group Number Insured Name Patient Relationship to Insured Coverage Start Date Coverage End Date [facility] [address] [address] [facility] [place] [address] [phone] [id number] CÉSAR MADISON Self - patient is the insured
== END 2024-12-30 16:11 | disposition home or self-care (01) ==
LOC: HO.MRI 16:10
PROVIDERS: PCP Internal Medicine; Visit Provider Internal Medicine Gastroenterology
DX: K85.90 Acute pancreatitis without necrosis or infection, unspecified (principal)
CPT/HCPCS: 74183; A9585

== ENCOUNTER → 2024-12-30 16:20 | Outpatient (BNV) | payer OTHER, SELFPAY | PROVIDERS: PCP Internal Medicine; Visit Provider Radiology Diagnostic Radiology | DX: K85.90 Acute pancreatitis without necrosis or infection, unspecified (principal) | CPT/HCPCS: 74183 ==

== ENCOUNTER 2025-03-16 14:18 | Outpatient (AMB) | payer OTHER, SELFPAY ==
--- NOTE | 2025-03-16 14:21 | A.OFFVIS_ITS ---
Vital Signs 03/16/25 14:22 Height 6 ft 2 in Weight 194 lb 0.108 oz BMI 24.9 BP 136/80 Blood Pressure Location Lt brachial Position Sitting Pulse 86 Intake Visit Reasons: 3m Allergies No Known Allergies Allergy (Verified 03/16/25 14:22) HPI HPI 3m: Details: 30 yr old m here for f/u for pancreatitis RECAP: He was admitted 10/22/24 with epigastric pain he had lipase elevation imaging with Us, Ct, and MRI wth acute pancreatitis--no gallstones seen he was told to stop indapamide he had mild IgG4 elevation weight has been stable for now Repeat MRI: 12/30/24- unremarkable, no stigmata of acute pancreatitis INTERIM: he is feeling well he has mild point tenderness LUQ side no worsening or relieiving factors no alcohol or drugs no melena, no rectal bleeding he recall being on indapamide, now stopped, could have caused the pancreatitis EXAM: GENERAL: The patient is well developed and nontoxic. VITAL SIGNS:see workflow HEENT: Nonicteric sclerae, PERRLA, EOMI. Oropharynx clear. Moist mucous membranes. Conjunctivae appear well perfused. No thyroid mass. CHEST: Chest wall is nontender. HEART: Regular rate and rhythm without murmurs. LUNGS: Clear to auscultation bilaterally. ABDOMEN: Soft, positive bowel sounds, nontender, no organomegaly.no flank tenderness SKIN: No rash, no excessive bruising, petechiae, or purpura. NEUROLOGIC: Cranial nerves II-XII intact without motor/sensory deficit. Psych: normal affect A/P: 1/ Acute pancreatitis, uncertain etiology, no Fh of AP, seems most likely due to indapamide, less likely celiac,, Igg4 (lab elevated but mild ), stiill could be gallstones or microlithiasis, SOD PLAN: 1/ he still wants genetic testing will send to [facility] 2/ advised to avoid thiazides in future [facility] Medical History Hypertension Social History Household Members: Friend(s) Housing: Apartment Do you presently have visiting nurse or other home services: No Patient Tobacco Use Status: Never used Tobacco service: No Physical Exam Vital Signs: Last Vital Signs Pulse 86 03/16/25 14:22 BP 136/80 03/16/25 14:22 BMI result Body Mass Index 24.9 Assessment & Plan Assessment & Plan (1) Acute pancreatitis: Code(s): K85.90 - Acute pancreatitis without necrosis or infection, unspecified Category: Medical Plan: as above Coding Level of Care Code Est Pt Level 3 (33006) Diagnoses Acute pancreatitis K85.90
[2025-03-16 14:22] VITALS: BP 136/80; PULSE 86; BMI 24.9
== END 2025-03-16 15:10 | disposition home or self-care (01) ==
LOC: HO.HGI 14:19
PROVIDERS: PCP Internal Medicine; Visit Provider Internal Medicine Gastroenterology
DX: K85.90 Acute pancreatitis without necrosis or infection, unspecified (principal)
CPT/HCPCS: 99213